=== PATIENT | male | born 1980 | race Caucasian/White ===

== ENCOUNTER 2024-10-14 22:10 | Emergency (ER) | payer OTHER, SELFPAY ==
[2024-10-14 22:13] VITALS: BP 101/73
[2024-10-15 01:04] VITALS: BP 94/58
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
[2024-10-15] MEDS: MOTRIN 600 MG PO (01:36)
--- NOTE | 2024-10-15 01:38 | EDRN ---
Pt sleeping on R side when this RN brought motrin to him. Medication administered then pt reached behind the head of the stretcher and lowered it to go back to sleep.
[2024-10-15] MEDS: TYLENOL 650 MG PO (03:40)
--- NOTE | 2024-10-15 11:13 | CM ---
Received CM consult, pt discharged from ED earlier today. Attempted to reach pt on cell phone number in chart, number is no longer in service.
== END 2024-10-15 03:57 | disposition home or self-care (01) ==
LOC: EMR 22:10
PROVIDERS: EMERGENCY PHYSICIAN Emergency Medicine
DX: S06.0XAA Concussion with loss of consciousness status unknown, initial encounter (principal); S93.401A Sprain of unspecified ligament of right ankle, initial encounter; W19.XXXA Unspecified fall, initial encounter; F41.9 Anxiety disorder, unspecified; F31.9 Bipolar disorder, unspecified; F17.200 Nicotine dependence, unspecified, uncomplicated; Z59.00 Homelessness unspecified
CPT/HCPCS: 99284; 70450; 73590; 73610